=== PATIENT | female | born 1955 | race Hispanic/Latino ===

== ENCOUNTER 2023-08-04 12:36 | Day surgery (SDC) | payer BC ==
[~2023-08-04] VITALS: Ht 160 cm; Wt 72.7 kg
[~2023-08-04 12:36] MED LIST: COZAAR50 MG PO; IBLOOD GLUCOSE TEST STRIP 1 EA TEST VI PRN; LACTATED RINGER'S 1,000 ML IV SCH; LIDOCAINE HCL 1% 5 ML SDV INJ ONE; MIDAZOLAM HCL 5 MG/5 ML VIAL IV PRN; MULTI-VITAMIN1 EACH PO; PRILOSEC20 MG PO; fentaNYL citrate 100 MCG/2 ML VIAL IV PRN
[2023-08-04 13:17] VITALS: BP 141/70
--- NOTE | 2023-08-04 14:00 | NUR ---
1400-PATIENT UP TO RESTROOM. NO OTHER NEEDS AT THIS TIME.
[2023-08-04] MEDS ORDERED: MIDAZOLAM HCL 5 MG/5 ML VIAL ONE (14:15)
[2023-08-04] MEDS ORDERED: fentaNYL citrate 100 MCG/2 ML VIAL ONE (14:15)
[2023-08-04 15:53] VITALS: BP 115/62
--- NOTE | 2023-08-04 16:07 | NUR ---
08/04/23 1607 Deena Echeverria 1502 PT ARRIVED IN PACU SLEEPY WITH NO C/O'S. ABD SOFT AND PASSING FLATUS. 1515 DR AT BEDSIDE. ALL QUESTIONS ANSWERED. 1530 RESTING. REU. 1545 SITTING UP IN BED SIPPING ON JUICE. DC INSTRUCTIONS GIVEN. 1600 GETTING DRESSED WITH STAND BY ASSIST.
--- NOTE | 2023-08-05 11:19 | OR ---
[facility] [address], [place] [address] Signed DATE OF OPERATION: 08/04/2023 SURGEON: Leandra Slade MD PREOPERATIVE DIAGNOSES: 1. Abdominal bloating and symptoms suggestive of biliary disease (gallbladder ultrasound negative). 2. Colon screening. POSTOPERATIVE DIAGNOSES: 1. Normal upper endoscopy. 2. Sigmoid and left-sided diverticulosis, otherwise normal. PROCEDURE: 1. Esophagogastroduodenoscopy with biopsy. 2. Total colonoscopy to cecum. ANESTHESIA: Intravenous sedation; fentanyl 150 mcg, Versed 6 mg total. INDICATION: This 67-year-old woman is a patient of Dr. Ortiz, who was referred for colonoscopy as it has been greater than 10 years since her last colonoscopy. She is symptom-free as regards to colon. The patient does have postprandial bloating and fullness and does have distant history of described gastroparesis without formal testing for that. She had seen Dr. You for that assessment two years ago apparently. She is admitted at this time to undergo screening colonoscopy as well as upper endoscopy since a gallbladder ultrasound recently performed showed no sign of stones. The risk of bleeding, infection, and perforation related to upper endoscopy and colonoscopy was reviewed in detail. She understands and wished to proceed. FINDINGS: Upper endoscopy was normal. No sign of ulcer, neoplasm, or inflammation. On colonoscopy, the colon was normal as well except for sigmoid and left-sided diverticulosis. DESCRIPTION OF PROCEDURE: The patient was brought to the endoscopy suite and given topical lidocaine hypopharyngeal anesthesia and placed in lateral decubitus position. She was given Electronically Signed By: LEANDRA SLADE MD 08/05/23 1119 PATIENT NAME: SUZANNE FUNEZ OPERATIVE REPORT DATE OF : 57 REPORT #: [id number] PHYSICIAN: LEANDRA SLADE MD PCP: DAMION ORTIZ DO REPORT IS CONFIDENTIAL AND NOT TO BE RELEASED WITHOUT AUTHORIZATION [facility] [address], [place] [address] Signed intravenous sedation to the point of slurred speech and nystagmus. A bite block was placed. An Olympus video upper endoscope was passed in the hypopharynx. The vocal cords were normal. The scope was advanced to the esophagus, throughout its length it was normal. The stomach was thoroughly evaluated showing normal rugal folds, normal antral motility, and normal pylorus. The scope was passed through this into the duodenal which was normal. Biopsies were obtained to assess for celiac disease. The scope was withdrawn and biopsies then undertaken both OBEY and pathologic testing retroflexed view showed a good flap valve. The scope was withdrawn to the distal esophagus, which was normal and biopsies were obtained nevertheless. Further withdrawal showed no other abnormality. Plans were then made for colonoscopy. Additional sedation was given and digital rectal examination performed which was normal. An Olympus video colonoscope was passed in the rectum and manipulated throughout the colon noting numerous diverticula of the sigmoid and left colon. Ultimately, scope was passed to the cecum. The ileocecal valve and appendiceal orifice were normal. Scope was withdrawn from that point and no abnormalities were noted other than the diverticulosis as per previously seen. Retroflexed view of the rectum was normal. The scope was removed. The patient was taken to the recovery room in good condition. CONCLUDING DIAGNOSIS: Normal upper endoscopy; diverticula of sigmoid. I believe her symptoms are most likely related to the gallbladder despite a normal gallbladder ultrasound. We will make arrangements for a CCK-HIDA test and see her back after that for further consideration of her symptoms. MD LILY Lemus/MODL /[id number] cc: Damion Ortiz DO Electronically Signed By: LEANDRA SLADE MD 08/05/23 1119 PATIENT NAME: SUZANNE FUNEZ OPERATIVE REPORT DATE OF : 57 REPORT #: [id number] PHYSICIAN: LEANDRA SLADE MD PCP: DAMION ORTIZ DO REPORT IS CONFIDENTIAL AND NOT TO BE RELEASED WITHOUT AUTHORIZATION [facility] [address] [place] [id number] Signed Copies: DAMION ORTIZ DO ~ Electronically Signed By: LEANDRA SLADE MD 08/05/23 1119 PATIENT NAME: SUZANNE FUNEZ OPERATIVE REPORT DATE OF : 57 REPORT #: [id number] PHYSICIAN: LEANDRA SLADE MD PCP: DAMION ORTIZ DO REPORT IS CONFIDENTIAL AND NOT TO BE RELEASED WITHOUT AUTHORIZATION
--- NOTE | 2023-08-11 17:13 | PATH ---
[facility] [address], [place] [address] Signed SPECIMEN(S): A DUODENAL BIOPSY SPECIMEN(S): B ANTRUM STOMACH BIOPSY SPECIMEN(S): C LOWER ESOPHAGUS BIOPSY SPECIMEN SOURCE: A. DUODENAL BIOPSY B. ANTRUM STOMACH BIOPSY C. LOWER ESOPHAGUS BIOPSY CLINICAL HISTORY: EGD/colonoscopy. History of gastroparesis; colon polyps FINAL PATHOLOGIC DIAGNOSIS: A. Duodenal biopsy: - Benign duodenal mucosa, negative for specific diagnostic abnormality. B. Antrum stomach, biopsy: - Benign gastric type mucosa with focal slight chronic inflammation. - Negative for evidence of Helicobacter organisms on routine HE stained sections. C. Lower esophagus, biopsy: - Benign esophageal mucosa, negative for increased epithelial eosinophils. - Negative for glandular mucosa. JVR:cml MICROSCOPIC EXAMINATION: Histologic sections of all submitted blocks are examined by light microscopy. These findings, together with the gross examination, support the pathologic diagnosis. GROSS DESCRIPTION: A. The specimen, labeled and designated "Dee Dee, 1" and designated on the requisition "duodenum biopsy," is received in formalin and consists of three navas soft tissue fragments, ranging from 0.2-0.3 cm. Entirely submitted in (A1). B. The specimen, labeled and designated "Dee Dee, 2" and designated on the requisition "antrum/pylorus biopsy," is received in formalin and consists of two navas soft tissue fragments, ranging from 0.3-0.4 cm. Entirely submitted in (B1). C. The specimen, labeled and designated "Dee Dee, 3" and designated on the requisition "lower esophagus biopsy," is received in formalin and consists of two navas soft tissue fragments, ranging from PATIENT NAME: SUZANNE FUNEZ PATHOLOGY DATE OF : 57 REPORT #: [id number] PHYSICIAN: [facility] [facility] PCP: DAMION ORTIZ DO REPORT IS CONFIDENTIAL AND NOT TO BE RELEASED WITHOUT AUTHORIZATION [facility] [address], [place] [address] Signed 0.3-0.4 cm. Entirely submitted in (C1). AC (under the direct supervision of a pathologist) The Gross Description was prepared using a voice recognition system. The report was reviewed for accuracy; however, sound-alike word errors, addition and/or deletions may occur. If there is any question about this report, please contact Client Services. ADDITIONAL NOTES: Immunohistochemical and/or in situ hybridization studies if performed in this case included appropriate positive controls that reacted as expected. This test was developed and its performance characteristics determined by [facility]. It has not been cleared or approved by the U.S. Food and Drug Administration. The FDA has determined that such clearance or approval is not necessary. This test is used for clinical purposes. It should not be regarded as investigational or for research. [facility] is certified under the Clinical Laboratory Improvement Amendments of 1988 (CLIA) as qualified to perform high complexity clinical laboratory testing. PERFORMING LABORATORY: Technical component was performed by [facility], [address] [place] [id number] (CLIA# [id number]). Professional interpretation was performed by [facility], [address] [place] [id number] (CLIA#: [id number]). Diagnostician: Erik Paez MD Pathologist Electronically Signed 08/11/2023 Copies: ~ PATIENT NAME: DEE DEESUZANNE PATHOLOGY DATE OF : 57 REPORT #: [id number] PHYSICIAN: TUCKER VALLEJO PCP: DAMION ORTIZ DO REPORT IS CONFIDENTIAL AND NOT TO BE RELEASED WITHOUT AUTHORIZATION
== END 2023-08-04 16:15 | disposition home or self-care (01) ==
LOC: DS 12:36 → OPS 12:36 → DS 14:00 → OPS 14:00
PROVIDERS: ATTEND Surgery
PROC: 0DJD8ZZ Inspection of Lower Intestinal Tract, Via Natural or Artificial Opening Endoscopic (ICD-10-PCS; 2023-08-04)
PROC: 0DB98ZX Excision of Duodenum, Via Natural or Artificial Opening Endoscopic, Diagnostic (ICD-10-PCS; principal; 2023-08-04 14:00)
PROC: 0DB38ZX Excision of Lower Esophagus, Via Natural or Artificial Opening Endoscopic, Diagnostic (ICD-10-PCS; 2023-08-04 14:00)
DX: R14.0 Abdominal distension (gaseous) (principal); K59.00 Constipation, unspecified; K57.30 Diverticulosis of large intestine without perforation or abscess without bleeding; K29.50 Unspecified chronic gastritis without bleeding; I10 Essential (primary) hypertension; Z87.19 Personal history of other diseases of the digestive system
CPT/HCPCS: 99153; G0500; J2250; J3010

== ENCOUNTER 2024-11-04 20:58 | Emergency (ER) | payer MEDICARE ==
[~2024-11-04] VITALS: Ht 157.5 cm; Wt 73.5 kg
[~2024-11-04 20:58] MED LIST changes: -IBLOOD GLUCOSE TEST STRIP 1 EA TEST VI PRN; -LACTATED RINGER'S 1,000 ML IV SCH; -LIDOCAINE HCL 1% 5 ML SDV INJ ONE; -MIDAZOLAM HCL 5 MG/5 ML VIAL IV PRN; -fentaNYL citrate 100 MCG/2 ML VIAL IV PRN
[2024-11-04] MEDS ORDERED: LORazepam 0.5 MG TAB PO ONE (21:30)
[2024-11-04] MEDS ORDERED: LOSARTAN POTASSIUM 50 MG TAB PO ONE (22:30)
[2024-11-04] MEDS ORDERED: LORazepam 1 MG HOME.PACK PO ONE (22:30)
[2024-11-04 22:55] VITALS: BP 156/79
== END 2024-11-04 22:35 | disposition home or self-care (01) ==
LOC: ED 20:58
DX: I10 Essential (primary) hypertension (principal); F43.9 Reaction to severe stress, unspecified; G47.30 Sleep apnea, unspecified; Z79.899 Other long term (current) drug therapy